=== PATIENT | male | born 1975 | race Caucasian/White ===

== ENCOUNTER 2017-04-18 18:27 | Emergency (ER) | payer BC ==
[2017-04-18 18:57] LABS: BASOPHILS 0.4 % (0-2); EOSINOPHILS 1.6 % (0-7); HEMATOCRIT 41.5 % (42.0-54.0); IMMATURE GRANULOCYTES 0.1 % (0-5); MCH 30.8 pg (26.0-34.0); MCHC 33.7 g/dL (31.0-37.0); MCV 91.4 fL (80.0-100.0); MEAN PLATELET VOLUME 9.3 fL (7.4-10.4); MONOCYTES 12.4 % (2-11); NEUTROPHILS 58.5 % (40-80); PLATELET COUNT 234 10x3/uL (130-400); RBC 4.54 10x6/uL (4.20-6.10); RDW 12.5 % (11.5-14.5); WBC 8.1 10x3/uL (4.8-10.8)
[2017-04-18 19:16] LABS: ALBUMIN 4.1 g/dL (3.4-5.0); ALKALINE PHOSPHATASE 117 U/L (46-116); ALT (SGPT) 32 U/L (10-68); BILIRUBIN - TOTAL 0.55 mg/dL (0.2-1.3); CALC OSMOLALITY 276 mosm/kg (275-300); CALCIUM 9.1 mg/dL (8.5-10.1); CARBON DIOXIDE 26.9 mmol/L (21.0-32.0); CHLORIDE - SERUM 102 mmol/L (98-107); CREATININE - SERUM 0.9 mg/dL (0.6-1.3); GLUCOSE 104 mg/dL (74-106); POTASSIUM - SERUM 3.7 mmol/L (3.5-5.1); SODIUM 139 mmol/L (136-145); UREA NITROGEN 10 mg/dL (7-18); eGFR NON AFRICAN AMERICAN > 90 mL/min (90-120)
[2017-04-21 12:06] VITALS: BMI 29.9
== END 2017-04-18 21:28 | disposition home or self-care (01) ==
LOC: D.ER 18:27
PROVIDERS: Family Medicine
DX: I82.401 Acute embolism and thrombosis of unspecified deep veins of right lower extremity (principal); F17.200 Nicotine dependence, unspecified, uncomplicated

== ENCOUNTER 2017-04-20 12:28 | Inpatient (IN) | payer BC ==
[~2017-04-20] VITALS: Ht 182.9 cm; Wt 100.0 kg
--- NOTE | ~2017-04-20 | EC ---
PATIENT:EUGENIA ARMIJO DATE OF SERVICE: 04/20/17 SEX: M MEDICAL RECORD: [id number] DATE OF : [birth year] LOCATION:[facility] AGE OF PATIENT: 41 ADMISSION DATE: 04/20/17 REFERRING PHYSICIAN: INTERPRETING PHYSICIAN: KYRIE NARVAEZ MD ECHOCARDIOGRAM REPORT ECHO CHARGES 4 ECHO COMPLETE CLINICAL DIAGNOSIS: PE/ASSESS FOR RV STRAIN ECHOCARDIOGRAPHIC MEASUREMENTS (adult normal given) AC root (d.<3.7cm) 3.7 cm LV Septum d (<1.2 cm> 1.2 cm Valve Excursion 1.9 cm LV Septum (systole) 1.5 cm Left Atria (s.<4.0cm> 3.0 cm LVPW d(<1.2cm) 1.6 cm RV (d.<2.3cm) 4.2 cm LVPW (sytole) 1.8 cm LV diastole(<5.6CM) 4.9 cm MV E-F(>70mm/sec) cm LV systole 3.2 cm LVOT Diameter 2.2 cm MV exc.(>10mm) 2.1 cm Est.ejection fraction (50-75%) % Pericardial Effusion N DOPPLER: LVIT cm/sec A 52.0 cm/sec E 72.0 cm/sec LA cm/sec RVSP 22 mmHg LVOT 131 cm/sec AOP1/2T m/s Asc. Ao 153 cm/sec RVOT 84 cm/sec RA cm/sec PA 121 cm/sec AV Gradient Peak 9.31 mmHg AV Mean 5.44 mmHg AV Area 3.2 cm MV Gradient Peak 2.81 mmHg MV Mean 1.47 mmHg MV Area cm COMMENTS: Interlocking And Signal Mechanic: Santino SIBLEY Chef Broiler Or Fry: 2 Dr. Cramer TAPE# PACS DATE OF SERVICE: 04/21/2017 PROCEDURE: Echocardiogram. FINDINGS: 1. Left ventricular chamber size is within normal limits. Left ventricular systolic function is normal. Overall ejection fraction estimated at 60%. 2. Left atrium, right atrium, and right ventricle chamber sizes are within normal limits. Left atrium measures 3.0 cm. 3. Valvular structures have normal structure and motion. ECHOCARDIOGRAM REPORT [id number] EUGENIA ARMIJO 4. Doppler interrogation reveals mild mitral regurgitation, mild tricuspid regurgitation, no other valvular insufficiency or stenosis. 5. No evidence of pericardial effusion or left ventricular thrombus. Pulmonary systolic pressure is normal, estimated at 22 mmHg. TRANSINT:[id number] Voice Confirmation ID: [id number] DOCUMENT ID: [id number] KYRIE NARVAEZ MD CC: [id number] DICTATION DATE: 04/22/17 104 ROCKET ENGINE COMPONENT MECHANIC: 04/22/17 1057 ADM IN [facility] [address] [place] [address]
[2017-04-20] MEDS ORDERED: HYDROCODONE-APA1 TAB PO (18:01)
[2017-04-20] MEDS ORDERED: PARAFON FORTE500 MG PO (18:03)
[2017-04-20 18:04] VITALS: BMI 29.9
[2017-04-20] MEDS ORDERED: ELIQUIS5 MG PO (18:04)
[2017-04-20 20:00] VITALS: BP 116/78
[2017-04-21 04:00] VITALS: BP 106/66
[2017-04-21 08:12] VITALS: BP 102/65
[2017-04-21 12:06] VITALS: Ht 182.9 cm; Wt 100.0 kg
[2017-04-21 12:24] VITALS: BP 117/70
[2017-04-21 15:57] VITALS: BP 109/67
[2017-04-21 20:00] VITALS: BP 116/79
[2017-04-22] VITALS: BP 120/80
[2017-04-22 04:00] VITALS: BP 103/64
[2017-04-22 05:00] LABS: BASOPHILS 0.7 % (0-2); EOSINOPHILS 1.4 % (0-7); HEMATOCRIT 40.8 % (42.0-54.0); HEMOGLOBIN 13.5 g/dL (13.5-17.5); IMMATURE GRANULOCYTES 0.1 % (0-5); LYMPHOCYTES 29.7 % (15-50); MCH 30.5 pg (26.0-34.0); MCHC 33.1 g/dL (31.0-37.0); MCV 92.1 fL (80.0-100.0); MEAN PLATELET VOLUME 9.8 fL (7.4-10.4); MONOCYTES 10.3 % (2-11); NEUTROPHILS 57.8 % (40-80); PLATELET COUNT 257 10x3/uL (130-400); RBC 4.43 10x6/uL (4.20-6.10); RDW 12.5 % (11.5-14.5); WBC 7.2 10x3/uL (4.8-10.8)
[2017-04-22 05:21] LABS: ALBUMIN 3.3 g/dL (3.4-5.0); ALKALINE PHOSPHATASE 99 U/L (46-116); ALT (SGPT) 52 U/L (10-68); BILIRUBIN - TOTAL 0.75 mg/dL (0.2-1.3); CALC OSMOLALITY 278 mosm/kg (275-300); CARBON DIOXIDE 31.7 mmol/L (21.0-32.0); CHLORIDE - SERUM 103 mmol/L (98-107); GLUCOSE 96 mg/dL (74-106); POTASSIUM - SERUM 4.2 mmol/L (3.5-5.1); PROTEIN - SERUM 7.2 g/dL (6.4-8.2); SODIUM 140 mmol/L (136-145); UREA NITROGEN 12 mg/dL (7-18); eGFR NON AFRICAN AMERICAN 88 mL/min (90-120)
[2017-04-22 09:33] VITALS: BP 111/72
[2017-04-22 13:28] VITALS: BP 101/61
== END 2017-04-22 17:09 | disposition home or self-care (01) | DRG 176 ==
LOC: D.ER 12:28 → D.MS 15:51
PROVIDERS: Internal Medicine Pulmonary Disease
DX: I26.99 Other pulmonary embolism without acute cor pulmonale (principal); I82.411 Acute embolism and thrombosis of right femoral vein; I82.431 Acute embolism and thrombosis of right popliteal vein; G89.29 Other chronic pain; M54.9 Dorsalgia, unspecified; Z87.891 Personal history of nicotine dependence

== ENCOUNTER 2018-02-17 11:44 | Emergency (ER) | payer BC ==
[~2018-02-17] VITALS: Ht 182.9 cm; Wt 106.8 kg
[~2018-02-17 11:44] MED LIST: ELIQUIS5 MG PO; HYDROCODONE-APA1 TAB PO; PARAFON FORTE500 MG PO
[2018-02-17 12:24] VITALS: Ht 182.9 cm; Wt 106.8 kg
[2018-02-17] MEDS ORDERED: ELIQUIS5 MG PO (13:06)
[2018-02-17 14:45] VITALS: BP 146/80
== END 2018-02-17 14:45 | disposition home or self-care (01) ==
LOC: D.ER 11:44
DX: I82.4Z1 Acute embolism and thrombosis of unspecified deep veins of right distal lower extremity (principal)

== ENCOUNTER 2018-02-25 17:41 | Emergency (ER) | payer BC ==
[~2018-02-25] VITALS: Ht 182.9 cm; Wt 104.5 kg
[2018-02-25 17:49] VITALS: Ht 182.9 cm; Wt 104.5 kg
[2018-02-25 17:58] LABS: BASOPHILS 0.7 % (0-2); EOSINOPHILS 1.6 % (0-7); HEMATOCRIT 43.2 % (42.0-54.0); HEMOGLOBIN 15.1 g/dL (13.5-17.5); IMMATURE GRANULOCYTES 0.1 % (0-5); MCH 32.1 pg (26.0-34.0); MCV 91.7 fL (80.0-100.0); MONOCYTES 9.4 % (2-11); NEUTROPHILS 36.2 % (40-80); PLATELET COUNT 237 10x3/uL (130-400); RBC 4.71 10x6/uL (4.20-6.10); WBC 6.9 10x3/uL (4.8-10.8)
[2018-02-25 18:10] LABS: APTT 26.4 SECONDS (22.8-39.4); INR 0.94 (0.85-1.17); PROTIME 12.1 SECONDS (11.6-15.0)
[2018-02-25 18:11] LABS: ALKALINE PHOSPHATASE 120 U/L (46-116); ALT (SGPT) 102 U/L (10-68); BILIRUBIN - TOTAL 0.83 mg/dL (0.2-1.3); CALC OSMOLALITY 283 mosm/kg (275-300); CALCIUM 9.4 mg/dL (8.5-10.1); CHLORIDE - SERUM 104 mmol/L (98-107); GLUCOSE 98 mg/dL (74-106); POTASSIUM - SERUM 3.9 mmol/L (3.5-5.1); PROTEIN - SERUM 7.7 g/dL (6.4-8.2); SODIUM 143 mmol/L (136-145); UREA NITROGEN 10 mg/dL (7-18); eGFR NON AFRICAN AMERICAN 88 mL/min (90-120)
[2018-02-25 18:23] LABS: CKMB 0.5 U/L (0.0-3.6); CREATINE KINASE 83 UL (21-232); PRO BNP 132 pg/mL (0-125); TROPONIN-I < 0.017 ng/mL (0.000-0.060)
[2018-02-25] MEDS ORDERED: ALBUTEROL SULF8.5 GM INH (21:05)
[2018-02-25 21:45] VITALS: BP 118/83
== END 2018-02-25 21:45 | disposition home or self-care (01) ==
LOC: D.ER 17:41
PROVIDERS: Family Medicine
DX: R07.9 Chest pain, unspecified (principal); R06.02 Shortness of breath; Z86.711 Personal history of pulmonary embolism; Z79.01 Long term (current) use of anticoagulants; F17.200 Nicotine dependence, unspecified, uncomplicated